=== PATIENT | male | born 1975 | race Hispanic/Latino ===

== ENCOUNTER 2021-12-29 17:50 | Emergency (ER) | payer OTHER ==
[~2021-12-29] VITALS: Ht 165.1 cm; Wt 120.2 kg
[2021-12-29 17:54] VITALS: BP 135/85
[2021-12-29] MEDS ORDERED: ACETAMINOPHEN 500 MG TABLET PO ONE (20:00)
[2021-12-29] MEDS ORDERED: IBUP-2070 PO (21:10)
[2021-12-29] MEDS ORDERED: AZIT500T2 PO (21:10)
[2021-12-29] MEDS ORDERED: BENZ-39 PO (21:10)
== END 2021-12-29 21:21 | disposition home or self-care (01) ==
LOC: EDH 17:50
DX: J40 Bronchitis, not specified as acute or chronic (principal); Z20.822 Contact with and (suspected) exposure to COVID-19
CPT/HCPCS: 71045; 87635; 87804 ×2; 87880; 99284; C9803

== ENCOUNTER 2023-09-19 00:54 | Emergency (ER) | payer BC ==
[~2023-09-19] VITALS: Ht 165.1 cm; Wt 102.1 kg
[~2023-09-19 00:54] MED LIST: AZIT500T2 PO; BENZ-39 PO; IBUP-2070 PO
[2023-09-19 01:43] LABS: BASOPHILS # (AUTO) 0.04 K/uL (0.00-0.20); BASOPHILS % (AUTO) 0.6 % (0.0-5.0); EOSINOPHILS # (AUTO) 0.15 K/uL (0.00-0.70); EOSINOPHILS % (AUTO) 2.1 % (0.0-8.0); HEMATOCRIT 44.2 % (42-54); IMMATURE GRANULOCYTE ABSOLUTE 0.02 K/uL (0-1); LYMPHOCYTES # (AUTO) 2.5 K/uL (1.0-4.8); LYMPHOCYTES % (AUTO) 34.5 % (21.0-51.0); MEAN CORPUSCULAR HGB CONC 33.7 g/dL (32.0-36.0); MEAN CORPUSCULAR VOLUME 80.2 fL (79-99); MONOCYTES # (AUTO) 0.6 K/uL (0.1-1.0); NEUTROPHILS # (AUTO) 3.8 K/uL (1.8-7.7); NEUTROPHILS % (AUTO) 53.5 % (40.0-77.0); PLATELET COUNT (AUTO) 221 K/uL (130-400); RED BLOOD CELL COUNT(AUTO) 5.51 MIL/uL (4.50-6.20); RED CELL DISTRIBUTION WIDTH 12.8 % (11.0-15.5); WHITE BLOOD COUNT (AUTO) 7.1 K/uL (4.8-10.8)
[2023-09-19 01:55] LABS: CREATININE 0.9 mg/dL (0.5-1.5); POTASSIUM 3.5 mmol/L (3.5-5.1)
[2023-09-19 01:59] LABS: ALBUMIN 3.4 g/dL (3.5-5.0); BILIRUBIN,TOTAL 0.4 mg/dL (0.2-1.0)
[2023-09-19 03:51] LABS: AMPHET/METH SCREEN,URINE NEGATIVE (NEGATIVE); BARBITURATE SCREEN, URINE NEGATIVE (NEGATIVE); BENZODIAZEPINES SCREEN,URINE NEGATIVE (NEGATIVE); CANNABINOID SCREEN,URINE NEGATIVE (NEGATIVE); COCAINE SCREEN,URINE NEGATIVE (NEGATIVE); OPIATE SCREEN,URINE NEGATIVE (NEGATIVE); PHENCYCLIDINE SCREEN,URINE NEGATIVE (NEGATIVE)
[2023-09-19 03:56] LABS: ADD UA MICROSCOPIC YES; APPEARANCE,URINE CLEAR (CLEAR); BILIRUBIN,URINE NEGATIVE (NEGATIVE); COLOR,URINE LIGHT-YELLOW (YELLOW); GLUCOSE, URINE (UA) >=1000 mg/dL (NEGATIVE); KETONES,URINE 10 mg/dL (NEGATIVE); LEUKOCYTE ESTERASE ,URINE NEGATIVE Leu/uL (NEGATIVE); NITRATE,URINE NEGATIVE (NEGATIVE); OCCULT BLOOD,URINE NEGATIVE (NEGATIVE); PROTEIN,URINE NEGATIVE (NEGATIVE); UROBILINOGEN,URINE 0.2 mg/dL (0.2-1.0)
[2023-09-19 03:57] LABS: SQUAMOUS EPITHELIAL CELL,UR RARE /HPF (0-2); WBC,URINE 0-1 /HPF (0-1)
[2023-09-19 05:31] VITALS: BP 136/73; PULSE 79; RESP 18; O2SAT 98
== END 2023-09-19 05:32 | disposition home or self-care (01) ==
LOC: EDH 00:54
DX: F10.90 Alcohol use, unspecified, uncomplicated (principal); R10.9 Unspecified abdominal pain; E11.9 Type 2 diabetes mellitus without complications; Y90.4 Blood alcohol level of 80-99 mg/100 ml
CPT/HCPCS: 36415; 74021; 76705; 80053; 80305; 81001; 82550; 84484; 85025; 93005

== ENCOUNTER 2024-10-23 11:15 | Emergency (ER) | payer BC ==
[~2024-10-23] VITALS: Ht 165.1 cm; Wt 112.5 kg
--- NOTE | 2024-10-23 12:30 | ERN ---
ED Note History of Present Illness Stated Complaint: COUGH, BONE PAIN,HEADACHE Chief Complaint: Cough Time Seen by MD: 11:39 Time Seen by Midlevel: 12:15 Dictation: Mr. Noe is a 49 year old male with history of obesity and type 2 diabetes who presented to the emergency department this morning for evaluation of flu symptoms. He reports cough and congestion x1 month. He has been seen by his PCP at [facility] and was started on a 10 day course of cephalexin. He states there is worsening of his symptoms with sore throat, body aches, nonproductive cough, and wheezing with chest tightness. He denies history of asthma and has never been a smoker. He denies having a fever, chills, shortness of breath, chest pain, palpitations, edema, abdominal pain, nausea, vomiting, diarrhea, dysuria, headache, or dizziness. Allergies: Coded Allergies: No Known Allergies (Unverified Allergy, Unknown, 12/29/21) Emergency Care PSYCHIATRIST: None Home Meds Active Scripts Guaifenesin/Dextromethorphan (Guaifenesin-Dm 200-20 mg/10 ml) 100 Mg-10 Mg/5 Ml Liquid, 10 ML PO q6 hours PRN for cough, #150 ML 0 Refills Prov:BASHIR WATKINS PERSONAL SECURITY SPECIALIST 10/23/24 Azithromycin (Azithromycin) 250 Mg Tablet, 250 MG PO 2 d 1 and then 1 janine for 5 Days, #6 TAB 0 Refills Prov:BASHIR WATKINS PERSONAL SECURITY SPECIALIST 10/23/24 Oseltamivir Phosphate (Tamiflu) 75 Mg Cap, 1 CAP PO BID for 5 Days, #10 CAP 0 Refills Prov:BASHIR WATKINS PERSONAL SECURITY SPECIALIST 10/23/24 Azithromycin (Zithromax Tri-Alexandre) 500 Mg Tablet, 500 MG PO DAILY, #5 TAB Prov:FITTINGGERBER TALENT ADVISOR 12/29/21 Benzonatate (Tessalon Perles) 100 Mg Cap, 100 MG PO TID, #15 CAP Prov:GERBER ROSALES TALENT ADVISOR 12/29/21 Ibuprofen (Ibuprofen) 600 Mg Tablet, 600 MG PO Q6H PRN for PAIN, #15 TAB Prov:FITTINGGERBER TALENT ADVISOR 12/29/21 Past Medical History Past Medical History: Diabetes-Type II Surgical History: None PSYCH History: no pertinent psych hx Family History: Negative Social History: ETOH, Lives with family RN Note Reviewed/Agreed w/PFSH: Yes Review of System Dictation REVIEW OF SYSTEMS: CONSTITUTIONAL: Patient denies fevers, chills, sweats and weight changes. Rep orts fatigue, and body aches. EYES: Patient denies any visual symptoms. EARS, NOSE, AND THROAT: No difficulties with hearing. No symptoms of rhinitis reports sore throat CARDIOVASCULAR: Patient denies chest pains, palpitations, orthopnea and paroxysmal nocturnal dyspnea. RESPIRATORY: No dyspnea on exertion, no wheezing reports cough, wheezing, and chest tightness GI: No nausea, vomiting, diarrhea, constipation, abdominal pain, hematochezia or melena. : No urinary hesitancy or dribbling. No nocturia or urinary frequency. No abnormal urethral discharge. MUSCULOSKELETAL: Reports body aches. NEUROLOGIC: No chronic headaches, no seizures. Patient denies numbness, tingling or weakness. PSYCHIATRIC: Patient denies problems with mood disturbance. No problems with anxiety. ENDOCRINE: No excessive urination or excessive thirst. States blood glucose levels have been well controlled. DERMATOLOGIC: Patient denies any rashes or skin changes. Initial Vital Sign VS Vital Signs Date Time Temp Pulse Resp B/P (MAP) Pulse Ox O2 Delivery O2 Flow Rate FiO2 10/23/24 11:21 99.0 102 16 127/82 97 Room Air 0 10/23/24 14:29 21 Physical Exam Dictation Vital signs: Reviewed. Temp 99 Constitutional: No acute distress. Non-toxic appearing. Head/Face: Normocephalic, atraumatic. Eyes: Periorbital areas with no swelling, redness, or edema. Lids and lashes are normal. Conjunctival injection is absent. Sclera anicteric. Pupils equal, round, reactive to light. ENT: Pinnas intact and no signs of trauma or erythema. Ear canals clear and no discharge. TMs no erythema. No nasal discharge or bleeding noted. Oropharynx with with bright erythema. Tonsils enlarged with erythema; no exudates, swelling, masses, exudates, or evidence of obstruction. Uvula midline. Mucous membranes moist. Neck: Trachea midline, no masses palpated, and no cervical lymphadenopathy. No swelling. Supple, full range of motion. Chest/Axilla: No tenderness, no crepitus, no paradoxical movement, no retractions. Cardiovascular: Regular rate, regular rhythm, no murmur, no gallops. Symmetric pulses. No peripheral edema. Normotensive. Respiratory: Respirations even and unlabored. Lung sounds with inspiratory wheeze. Room air SpO2 97% Gastrointestinal: Inspection is normal. No distention is appreciated. Bowel sounds are normal. No mass or organomegaly . There is no tenderness. No rebound. No rigidity. No voluntary or involuntary guarding. No Gillespie's sign. Neurological: Normal speech, gross motor function intact, gross sensory function intact. No focal weakness/Paresthesia. Musculoskeletal/Extremities: All extremities have full range of motion, no pain or tenderness on palpation. Symmetric pulses. Integumentary: Intact. Skin is normal color, warm and dry. Cap refill less than 3 seconds. Results (Laboratory/Radiology) Laboratory/Radiology Labs Reviewed?: Yes X-RAY Comment: PATIENT: MARVIN NOE MR#: [id number] : 1975 SEX: M AGE: 49 LOCATION: [facility] ORDER [id number] STATUS: REG ER REPORT#: [id number] SERVICE [id number] REASON: COUGH ORDERING PHYSICIAN: BHAVYA HUBBARD DO PROCEDURE: CXR1VW - CHEST 1VW CHEST 1VW HISTORY: Cough COMPARISON: 12/29/2021 FINDINGS: A frontal projection of the chest was obtained. Prominent interstitial markings are seen with possible superimposed infiltrates. The heart is borderline enlarged. Degenerative changes are seen. No evidence of aortic calcification is seen. IMPRESSION: 1. Prominent interstitial markings are seen with possible superimposed infiltrates. DICTATED BY: MICHELLE GROVER MD DATE: 10/23/241401 ELECTRONICALLY SIGNED BY: MICHELLE GROVER MD DATE: 10/23/24 140 ED Course ED Course Uneventful ED course. Vital signs remained stable; afebrile with room air SpO2 97%. Chest x-ray with possible early CPAP. Strep, COVID, and influenza B are negative. Influenza A positive. While in the emergency department he received doses guaifenesin as well as DuoNeb. He reports that he is feeling much better. And will be discharged to home. Medical Decision Making MDM MDM: Differential diagnosis: Influenza, COVID, CPAP, strep Rationale: Tests considered and ordered secondary to shared decision making include: Lab, x-ray Previous outside records reviewed: Old ER visits. Risk of complication and/or morbidity or mortality of patient management: None Medications-Per medication reconciliation Need for hospitalization: Patient does not meet criteria for hospitalization. Need for emergency major/minor surgery: No There are no social concerns with this patient. Prescription drug management: Guaifenesin, Tamiflu, azithromycin Prescriptions will include symptomatic care Patient's prior external medical records from other ER visits were reviewed by me as indicated. Prior testing and results from previous visits were reviewed. Prior tests were taken into account with medical decision making and resource utilization, independent historian/historians were used to obtain complete medical history. I independently interpreted the test that were performed, results were reviewed by me and considered findings on radiology if ordered. Medical management and examination interpretation discussions were had by me with other qualified healthcare professionals as indicated for the patient's care. DX & DISP Disposition: Discharge Departure Impression: Primary Impression: Bronchitis Additional Impressions: Influenza A, URI (upper respiratory infection) Condition: Stable Scripts Guaifenesin/Dextromethorphan (Guaifenesin-Dm 200-20 mg/10 ml) 100 Mg-10 Mg/5 Ml Liquid 10 ML PO q6 hours PRN for cough, #150 ML 0 Refills Prov: BASHIR WATKINS NP 10/23/24 Azithromycin (Azithromycin) 250 Mg Tablet 250 MG PO 2 d 1 and then 1 janine for 5 Days, #6 TAB 0 Refills Prov: BASHIR WATKINS NP 10/23/24 Oseltamivir Phosphate (Tamiflu) 75 Mg Cap 1 CAP PO BID for 5 Days, #10 CAP 0 Refills Prov: BASHIR WATKINS NP 10/23/24 Additional Instructions: Rest. Isolate at home until symptoms are subsiding and you have been fever free times 24 hours. May take guaifenesin DM every 6-8 hours as needed for cough. Start azithromycin you will take two tabs today and then once daily for the next four days. Start Tamiflu twice daily for the next five days. Follow up with your primary care physician in the next 2-3 days. Return to the emergency department for any worsening of symptoms Referrals: SELF,REFERRAL (PCP) Time of Disposition: 14:24 BASHIR WATKINS NP Oct 23, 2024 12:30 BHAVYA HUBBARD 10, 2025 09:02
[2024-10-23] MEDS: IpraTROPium/alBUTERol SULFATE 3 ML SOLUTION IH ONE (12:56)
[2024-10-23 13:04] VITALS: PULSE 90; RESP 18
[2024-10-23] MEDS: guaiFENesin-DM 200/20MG 10ML PO ONE (13:31)
[2024-10-23 13:50] LABS: SARS-CoV-2, RNA, NAAT NEGATIVE SARS CoV-2 (NEGATIVE)
[2024-10-23 13:58] LABS: INFLUENZA TYPE B Negative For Type B (NEGATIVE)
[2024-10-23 14:01] LABS: INFLUENZA TYPE A Positive For Type A (NEGATIVE)
--- NOTE | 2024-10-23 14:06 | HMCIMG ---
CHEST 1VW HISTORY: Cough COMPARISON: 12/29/2021 FINDINGS: A frontal projection of the chest was obtained. Prominent interstitial markings are seen with possible superimposed infiltrates. The heart is borderline enlarged. Degenerative changes are seen. No evidence of aortic calcification is seen. IMPRESSION: 1. Prominent interstitial markings are seen with possible superimposed infiltrates.
[2024-10-23] MEDS ORDERED: AZIT250T9 PO (14:23)
[2024-10-23] MEDS ORDERED: OSEL75 PO (14:23)
[2024-10-23] MEDS ORDERED: GUAIFDM PO (14:23)
[2024-10-23 14:29] VITALS: BP 124/72; PULSE 96; RESP 18; TEMP 98.7; O2SAT 99
== END 2024-10-23 14:31 | disposition home or self-care (01) ==
LOC: EDH 11:15
DX: J40 Bronchitis, not specified as acute or chronic (principal); J10.1 Influenza due to other identified influenza virus with other respiratory manifestations; E11.9 Type 2 diabetes mellitus without complications; Z20.822 Contact with and (suspected) exposure to COVID-19
CPT/HCPCS: 71045; 87635; 87804; 87880; 94640; 99283